=== PATIENT | male | born 1950 | race African-American/Black ===

== ENCOUNTER → 2016-08-06 | Outpatient (CLI) | payer BC ==
--- NOTE | 2016-08-06 13:41 | RAD ---
Exam: PA and lateral as well as AP lordotic chest radiographs History: Chronic kidney disease stage V. Comparison: None. Findings: Cardiomediastinal silhouette is within normal limits for size. Bilateral lung quiros are free of focal infiltrate. No pleural effusion is seen. No cavitary lesions are seen. Impression: No acute cardiopulmonary process.
[2016-08-06 22:12] LABS: HEP B SURFACE ABDY Non Reactive (.)
== END | disposition home or self-care (01) ==
LOC: RAD 12:07
PROVIDERS: ATTEND Internal Medicine Nephrology
DX: N18.5 Chronic kidney disease, stage 5 (principal)
CPT/HCPCS: 36415; 71021; 86705; 86706; 86803; 87340; 87341

== ENCOUNTER → 2017-01-10 | Day surgery (SDC) | payer BC ==
[~2017-01-10] MED LIST: ALLO300T PO; CARV25TA2 PO; CLON0.2T PO; IV RINGERS,LACTATED 1000ML 1,000 ML IV SCH; NIFE60TA10 PO; PRAZ5CAP2 PO; PROPOFOL 0 ML IV ONE; PROPOFOL 20 ML IV ONE
[2017-01-10 13:48] VITALS: BP 93/60
--- NOTE | 2017-01-11 06:46 | CONS ---
DATE OF CONSULTATION: 01/10/2017 REFERRING PHYSICIAN: Dr. Caron Morales. HISTORY OF PRESENT ILLNESS: This is a 66-year-old -[place] male with past medical history significant for hypertension, history of colonic polyps, end-stage renal disease is seen for interval colonoscopy, last was performed 2006 with a history of polyps previously. Stools have been formed. There is no family history of colon cancer and there has been no diarrhea, constipation, melena and/or hematochezia. He has just recently started hemodialysis, also being screened for possible renal transplantation. He is without additional complaints. PAST MEDICAL HISTORY: Hypertension, osteoarthrosis, history of colonic polyps, hypertension, end-stage renal disease, on dialysis. ALLERGIES: None. MEDICATIONS: Include allopurinol, carvedilol, clonidine and prazosin. SOCIAL HISTORY: Former smoker, social drinker. FAMILY HISTORY: Significant for hypertension, pancreatic cancer and CVA in his parents. REVIEW OF SYSTEMS: Per above. PHYSICAL EXAMINATION: GENERAL: Reveals a well-nourished, well-developed -[place] male. He is alert, cooperative, in no acute distress. VITAL SIGNS: Temperature 97.1, pulse 84, respirations 18. HEENT: Normocephalic and atraumatic head. Pupils and extraocular muscles not tested. Sclerae anicteric. NECK: Supple. LUNGS: Clear. CARDIOVASCULAR: Reveals S1, S2 without S3, S4 or appreciable murmur. ABDOMEN: Soft abdomen, normal bowel sounds, without appreciable hepatosplenomegaly. EXTREMITIES: Reveals no cyanosis, clubbing or edema. IMPRESSION: Colorectal screening with history of colonic polyps is warranted at this time. Risks and benefits of procedure have been discussed. The patient is willing to proceed. I would like to thank Dr. Morales for allowing us to consult and participate in the patient's care. DANIELLA COOPER MD DR: MARIA C/nikhil JOB#: [id number] / [id number]
--- NOTE | 2017-01-11 13:50 | PATHOLOGY ---
PATHOLOGY REPORT * * * * * * * * FINAL DIAGNOSIS: Colon biopsy, sigmoid polyp: - Tubular adenoma. COMMENT: There is no high-grade dysplasia or evidence of malignancy. (JPM:mgpo; d/t: 01/11/17) REPORT ELECTRONICALLY SIGNED BY: Siva Marcelino M.D. DATE/TIME: 01/11/2017 13:50 * * * * * * * * GROSS PATHOLOGY: Received in formalin labeled "Micky Laird, sigmoid polyp," is a segment of haddad soft tissue measuring 0.5 cm in maximum dimension. The specimen is submitted entirely in cassette A1. (JPM; 01/10/17) INITIAL CPT CODE(S): A; 51230 Professional services performed [place] [facility] [address] Technical services performed by [facility] at [address] [place] [address] [address] [address]. SPECIMEN(S) RECEIVED: A.Sigmoid polyp CLINICAL HISTORY: Kidney transplant screening PATIENT: MICKY LAIRD /AGE: 1207/21/1950 (Age: 66) PATIENT #: [id number] ALT CASE #: SPECIMEN COLLECTION DATE: 01/10/2017 SPECIMEN RECEIVED DATE: 01/10/2017 [facility] - [address] [place] [address] - PHONE: [phone] * * * END OF REPORT * * *
== END | disposition home or self-care (01) ==
LOC: ENDOS 11:33
PROVIDERS: ATTEND Internal Medicine Gastroenterology
DX: Z09 Encounter for follow-up examination after completed treatment for conditions other than malignant neoplasm (principal); Z86.010 Personal history of colon polyps; K64.0 First degree hemorrhoids; D12.5 Benign neoplasm of sigmoid colon; I10 Essential (primary) hypertension; M19.90 Unspecified osteoarthritis, unspecified site; F17.200 Nicotine dependence, unspecified, uncomplicated
CPT/HCPCS: 45385; 88305; J2704

== ENCOUNTER → 2018-06-24 | Outpatient (CLI) | payer MEDICARE ==
[2017-01-10 13:48] VITALS: BP 93/60
[~2018-06-24] MED LIST changes: -IV RINGERS,LACTATED 1000ML 1,000 ML IV SCH; -NIFE60TA10 PO; +NIFE60TA14 PO; -PROPOFOL 0 ML IV ONE; -PROPOFOL 20 ML IV ONE
--- NOTE | 2018-06-24 10:23 | CARD ---
MR#: [id number] Date of Study: 06/24/2018 Ordering Physician: GALE GRIFFIN, Referring Physician: GALE GRIFFIN, Tech: Bhavna Barbosa CHELSIE APPROVED REPORT EXAM: Two-dimensional and M-mode echocardiogram with Doppler and color Doppler. Other Information Quality : Good INDICATION Murmur 2D DIMENSIONS RVDd2.8 (2.9-3.5cm)Left Atrium(2D)3.6 (1.6-4.0cm) IVSd1.0 (0.7-1.1cm)Aortic Root(2D)3.2 (2.0-3.7cm) LVDd5.4 (3.9-5.9cm)LVOT Diameter2.3 (1.8-2.4cm) PWd1.0 (0.7-1.1cm)LVDs4.0 (2.5-4.0cm) FS (%) 25.0 %SV69.2 ml LVEF(%)50.0 (>50%) Aortic Valve AoV Peak Tino.111.1cm/sAoV VTI18.1cm AO Peak GR.4.9mmHgLVOT Peak Tino.102.1cm/s AO Mean GR.3mmHgAVA (VMAX)3.83cm2 THERESE (VTI)4.30cm2 Mitral Valve MV E Tpdrceid76.6cm/sMV DECEL GCKI825gz MV A Ywsznoyn627.1cm/sE/A Ratio0.7 Tricuspid Valve TR P. Dlctmmjm583lk/sRAP [id number] TR Peak Gr.35ldUpSZOW19dwVb Pulmonary Vein S1 Pdfhhfwa03.0cm/sD2 Hpeelwoz24.2cm/s LEFT VENTRICLE The left ventricle is normal size. There is normal left ventricular wall thickness. Left ventricle sy stolic function is normal. The Ejection Fraction is 55-60%. There is normal LV segmental wall motion. Transmitral Doppler flow pattern is Grade I-abnormal relaxation pattern. RIGHT VENTRICLE The right ventricle is normal size. The right ventricular systolic function is normal. ATRIA The left atrium size is normal. The right atrium size is normal. The interatrial septum is intact wit h no evidence for an atrial septal defect or patent foramen ovale as noted on 2-D or Doppler imaging. AORTIC VALVE The aortic valve is calcified but opens well. Doppler and Color Flow revealed trace aortic regurgitat ion. There is no significant aortic valvular stenosis. MITRAL VALVE The mitral valve is calcified but opens well. Mitral annular calcification is mild. There is no evide nce of mitral valve prolapse. There is no mitral valve stenosis. Doppler and Color-flow revealed trac e mitral regurgitation. TRICUSPID VALVE The tricuspid valve is normal in structure and function. Doppler and Color Flow revealed mild tricusp id regurgitation. There is moderate pulmonary hypertension. The PA pressure was estimated at 46 mmHg. There is no tricuspid valve stenosis. PULMONIC VALVE The pulmonary valve is normal in structure and function. Doppler and Color Flow revealed trace pulmon ic valvular regurgitation. There is no pulmonic valvular stenosis. GREAT VESSELS The aortic root is normal in size. The ascending aorta is normal in size. The IVC is normal in size a nd collapses >50% with inspiration. PERICARDIAL EFFUSION There is no evidence of significant pericardial effusion. Critical Notification Critical Value: No <Conclusion> Left ventricle systolic function is normal. The Ejection Fraction is 55-60%. There is normal LV segmental wall motion. Transmitral Doppler flow pattern is Grade I-abnormal relaxation pattern. Trace mitral regurgitation. Mild tricuspid regurgitation. There is moderate pulmonary hypertension. The PA pressure was estimated at 46 mmHg. There is no evidence of significant pericardial effusion. Signed by : Gómez Jorge, Electronically Approved : 06/24/2018 10:23:05
== END | disposition home or self-care (01) ==
LOC: ECHO 07:44
PROVIDERS: ATTEND Internal Medicine Cardiovascular Disease
DX: I07.1 Rheumatic tricuspid insufficiency (principal); I27.20 Pulmonary hypertension, unspecified
CPT/HCPCS: 93306

== ENCOUNTER → 2020-03-31 | Outpatient (CLI) | payer MEDICARE ==
[2019-11-06 14:27] VITALS: BP 115/78
[~2020-03-31] MED LIST changes: +ASPI-630 PO; +ATOR40TA PO
--- NOTE | 2020-03-31 12:18 | RAD ---
RENAL COMPLETE BILATERAL History: End-stage renal disease Comparison: None. Findings: Multiple sonographic images of the kidneys and urinary bladder are submitted. Right kidney measured 9.7 x 4.7 x 3.8 cm. The left kidney measured 9.6 x 4.2 x 4.5 cm. There is no hydronephrosis of either kidney. There is increased echogenicity of the renal parenchyma bilaterally. There is anechoic cyst of the mid right kidney up to 1.6 m in greatest dimension. Some other tiny likely cysts present. There is a focus of hypoechogenicity of the mid to superior left kidney up to 1.8 x 2.3 x 1.56 m in size with increased through transmission although some internal echoes present, no associated vascularity color Doppler imaging. Urinary bladder is not well-distended for exam, ureteral jets not seen during exam. Impression: 1. Kidneys are echogenic and small as may be seen with medical renal disease. There are bilateral renal cysts. There is no hydronephrosis of either kidney. Electronically signed by: Harshad Wagner MD (03/31/2020 12:15 PM) [id number]
== END | disposition home or self-care (01) ==
LOC: US 09:45
PROVIDERS: ATTEND Internal Medicine Nephrology
DX: N18.6 End stage renal disease (principal); N28.1 Cyst of kidney, acquired
CPT/HCPCS: 76770